=== PATIENT | male | born 1990 | race Hispanic/Latino ===

== ENCOUNTER 2018-04-16 22:38 | Emergency (ER) | payer OTHER ==
[2018-04-16 23:20] VITALS: BP 119/69; RESP 18; TEMP 98.5
[2018-04-16 23:25] VITALS: PULSE 78; O2SAT 99
[2018-04-16] MEDS ORDERED: Lidocaine 2% w Epi 1:100,000 Inj IJ STA (23:40)
[2018-04-16] MEDS ORDERED: Lidocaine 1% w Epi 1:100,000 Inj ONE (23:41)
--- NOTE | 2018-04-17 00:15 | ED PDOC ---
HPI: Skin/Bite Injury Time Seen by Provider: 04/16/18 23:34 Chief Complaint (Nursing): Abnormal Skin Integrity Chief Complaint (Provider): Left elbow laceration History Per: Patient History/Exam Limitations: no limitations Onset/Duration Of Symptoms: Mins Current Symptoms Are (Timing): Still Present Quality Of Symptoms: Painful Severity: Mild Additional Complaint(s): 27 yo male with no medical problems presents with laceration on the left elbow. PT was playing hockey and fell hitting the ice with elbow. Pt states he has localized pain to the skin. PT denies elbow pain. Pt reports tetanus UTD. Past Medical History Reviewed: Historical Data, Nursing Documentation, Vital Signs Vital Signs: Last Vital Signs Temp 98.5 F 04/16/18 23:22 Pulse 78 04/16/18 23:22 Resp 18 04/16/18 23:22 BP 119/69 04/16/18 23:22 Pulse Ox 99 04/17/18 00:15 - Medical History PMH: No Chronic Diseases - Surgical History Surgical History: No Surg Hx - Family History Family History: States: No Known Family Hx - Living Arrangements Living Arrangements: With Family - Social History Current smoker - smoking cessation education provided: No Alcohol: Occasional Drugs: Denies - Allergies Allergies/Adverse Reactions: Allergies Allergy/AdvReac Type Severity Reaction Status Date / Time Penicillins Allergy ANAPHYLAXIS Verified 04/16/18 23:40 Review of Systems ROS Statement: Except As Marked, All Systems Reviewed And Found Negative Constitutional: Negative for: Fever, Chills Skin: Positive for: Other Physical Exam - Reviewed Nursing Documentation Reviewed: Yes Vital Signs Reviewed: Yes - Physical Exam Appears: Positive for: Well, Non-toxic, No Acute Distress Head Exam: Positive for: ATRAUMATIC, NORMAL INSPECTION, NORMOCEPHALIC Skin: Positive for: Warm. Negative for: Normal Color (2 cm laceration of the left elbow) Eye Exam: Positive for: Normal appearance ENT: Positive for: Normal ENT Inspection Neck: Positive for: Normal Respiratory: Negative for: Accessory Muscle Use, Respiratory Distress Back: Positive for: Normal Inspection Extremity: Positive for: Normal ROM. Negative for: Deformity, Swelling Neurologic/Psych: Positive for: Alert - ECG O2 Sat by Pulse Oximetry: 99 Disposition - Clinical Impression Clinical Impression: Elbow laceration - Patient ED Disposition Is Patient to be Admitted: No Counseled Patient/Family Regarding: Diagnosis, Need For Followup - Disposition Disposition: Routine/Home Disposition Time: 00:13 Condition: STABLE Additional Instructions: do not get wet for 48 hours. Keep clean and dry with antibiotic ointment. Return sooner for redness, increased pain, swelling or drainage. Suture removal 2 weeks. Instructions: Laceration Repair Forms: [employer] (Thai) Laceration - Laceration Repair Left elbow Wound Length (In cm): 3 Description Of Wound: Irregular Wound Cleansed With: Sterile Saline Anesthesia: Lidocaine 1%, With Epi Wound Examination: Irrigated With Saline, No FB With Wound Exploration, No Tendon Injury With Wound Exploration Wound Closure: Suture (4.0) Suture Technique And Material Used: Prolene (#4)
== END 2018-04-17 00:18 | disposition home or self-care (01) ==
LOC: H.ER 22:38
DX: S51.012A Laceration without foreign body of left elbow, initial encounter (principal); W22.8XXA Striking against or struck by other objects, initial encounter; Y93.22 Activity, ice hockey; Z88.0 Allergy status to penicillin